=== PATIENT | female | born 1980 | race Caucasian/White ===

== ENCOUNTER 2019-09-16 08:13 | Emergency (ER) | payer OTHER, SELFPAY ==
[2019-09-16 08:28] VITALS: BP 127/84; PULSE 100; RESP 16; TEMP 36.9; O2SAT 98
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
--- NOTE | 2019-09-16 09:27 | PC.NURSE ---
0849: Strep test performed per pt request.
== END 2019-09-16 09:02 | disposition home or self-care (01) ==
PROVIDERS: Emergency Provider Nurse Practitioner; PCP Internal Medicine
DX: J02.9 Acute pharyngitis, unspecified (principal); E03.9 Hypothyroidism, unspecified
CPT/HCPCS: 87081; 87880; 99213; G0463

== ENCOUNTER 2021-05-06 07:51 | Outpatient (CLI) | payer BC, SELFPAY ==
--- NOTE | ~2021-05-06 | MMUS_ITS ---
EXAMINATION: MM diagnostic marissa BI w jenny, US breast LT limited HISTORY: Pain in the lower outer left breast TECHNIQUE: Additional 3-D tomosynthesis images of the breasts were performed and synthetic 2-D images were generated. CAD analysis was submitted and interpreted. High resolution limited left breast ultr asound was performed. COMPARISON: 03/14/2013 FINDINGS: MAMMOGRAPHIC FINDINGS: There is no evidence of suspicious mass, calcification, or architectural distortion in either breast to suggest malignancy. There has been no suspicious interval change. No mammographic correlate with p atient's reported left breast pain. ULTRASOUND: There is no evidence of focal abnormal solid or cystic mass in the vicinity of the patient's reported left breast pain. IMPRESSION: 1. No specific mammographic or sonographic correlate is identified for the patient's reported left br east pain. Further evaluation at this time should be based on clinical assessment. Continued follow-u p physical examination is recommended. 2. Recommend routine screening mammography in one year. BI-RADS Category 1: Negative Reviewed, dictated and finalized at location A. IMPRESSION: 1. No specific mammographic or sonographic correlate is identified for the makeda ent's reported left breast pain. Further evaluation at this time should be base d on clinical assessment. Continued follow-up physical examination is recommend ed. 2. Recommend routine screening mammography in one year. BI-RADS Category 1: Negative
== END 2021-05-06 07:52 ==
PROVIDERS: Visit Provider Advanced Practice Midwife
DX: N64.4 Mastodynia (principal)
CPT/HCPCS: 76642; 77062; 77066; G0279

== ENCOUNTER 2021-08-17 10:58 | Emergency (ER) | payer BC, SELFPAY | END 2021-08-17 11:03 | disposition left against medical advice (07) | PROVIDERS: Emergency Provider Internal Medicine Hematology & Oncology; PCP Internal Medicine | DX: Z53.21 Procedure and treatment not carried out due to patient leaving prior to being seen by health care provider (principal) | CPT/HCPCS: 99199 ==

== ENCOUNTER → 2023-08-03 13:29 | Outpatient (CLI) | payer BC, SELFPAY ==
--- NOTE | ~2023-08-03 | MM_ITS ---
EXAMINATION: MM screening marissa BI w jenny HISTORY: Screening mammogram TECHNIQUE: Craniocaudal and mediolateral oblique 3-D tomosynthesis images were obtained and synthetic 2-D images were generated. CAD analysis was submitted and interpreted. COMPARISON: 05/06/2021 diagnostic bilateral mammogram and limited left breast ultrasound BREAST PARENCHYMAL COMPOSITION: There are scattered areas of fibroglandular density. FINDINGS: There is no evidence of suspicious mass, calcification, or architectural distortion to sugg est malignancy in either breast. There has been no suspicious interval change. IMPRESSION: 1. No mammographic evidence of malignancy. 2. Recommend routine screening mammography in one year. BI-RADS Category 1: Negative Reviewed, dictated and finalized at location A. [employer]GER
== END ==
PROVIDERS: PCP Internal Medicine; Visit Provider Internal Medicine
DX: Z12.31 Encounter for screening mammogram for malignant neoplasm of breast (principal)
CPT/HCPCS: 77063; 77067

== ENCOUNTER 2024-06-17 10:39 | Outpatient (CLI) | payer BC, SELFPAY ==
--- NOTE | ~2024-06-17 | MR_ITS ---
MRI of the right shoulder Technique: Axial proton-density fat-sat images, coronal proton density fat-sat and T2 fat-sat images, and sagittal T1-weighted and T2 fat-sat images were acquired. Clinical History: Pain Findings: There is mild AC joint degenerative change, with mild reactive marrow edema at the distal c lavicle and acromion. Coracoclavicular, coracoacromial, and coracohumeral ligaments are intact. There is mild supraspinatus and infraspinatus tendinosis, without partial or full-thickness tear. Sub scapularis tendon is intact, with moderate tendinosis. Tendon of long head of the biceps is intact, w ith intra-articular tendinosis. No definite labral tear seen. Inferior glenohumeral ligament is intact. There is minimal glenohumeral joint effusion. No fluid dist ention of the subacromial/subdeltoid bursa. No muscle atrophy or edema. Impression: Diffuse rotator cuff tendinosis, without partial or full thickness tear. Mild AC joint degenerative change, with reactive marrow edema about the joint. Reviewed, dictated and finalized at [facility]. [employer]ISING COPY WRITER Impression: Diffuse rotator cuff tendinosis, without partial or full thickness tear. Mild AC joint degenerative change, with reactive marrow edema about the joint.
== END 2024-06-17 10:40 | disposition home or self-care (01) ==
PROVIDERS: PCP Internal Medicine; Visit Provider Chiropractor Rehabilitation
DX: M19.011 Primary osteoarthritis, right shoulder (principal)
CPT/HCPCS: 73221